=== PATIENT | female | born 1990 | race Two or more races ===

== ENCOUNTER → 2025-05-08 | Outpatient (CLI) | payer MEDICAID, SELFPAY ==
--- NOTE | 2025-05-08 13:30 | XR_ITS ---
Thyroid sonography complete TECHNIQUE: Grayscale sonographic images thyroid lobes Date and time: May 08, 2025 1346 hours INDICATIONS: Swollen neck one month. FINDINGS: Right thyroid 5.0 cm Upper pole nodule 10 x 9 mm Left thyroid 5.1 cm no nodules IMPRESSION: 1.0 x 0.7 x 0.9 cm vascular of report right thyroid nodule
== END | disposition home or self-care (01) ==
LOC: CDIM 13:20
PROVIDERS: PCP Nurse Practitioner Family; Referring Provider Nurse Practitioner Family; Visit Provider Nurse Practitioner Family
DX: E04.1 Nontoxic single thyroid nodule (principal)
CPT/HCPCS: 76536